=== PATIENT | female | born 1960 | race Caucasian/White ===

== ENCOUNTER 2019-01-06 06:58 | Day surgery (SDC) | payer OTHER ==
[2019-01-05 08:36] LABS: BASOPHILS # (AUTO) 0.1 K/uL (0.00-0.22); BASOPHILS % (AUTO) 1.1 % (0.0-2.0); EOSINOPHILS # (AUTO) 0.4 K/uL (0-0.4); EOSINOPHILS % (AUTO) 7.4 % (0.0-4.0); HEMOGLOBIN 12.1 g/dL (12.0-16.0); LYMPHOCYTES # (AUTO) 1.2 K/uL (2.5-16.5); LYMPHOCYTES % (AUTO) 24.9 % (20.5-51.1); MEAN CORPUSCULAR HEMOGLOBIN 30 pg (27-31); MEAN CORPUSCULAR HGB CONC 34 g/dL (33-37); MEAN CORPUSCULAR VOLUME 90.6 fL (80-94); MONOCYTES # (AUTO) 0.4 K/uL (0.8-1.0); MONOCYTES % (AUTO) 8.9 % (1.7-9.3); NEUTROPHILS # (AUTO) 2.8 K/uL (1.8-7.7); NEUTROPHILS % (AUTO) 57.7 % (42.2-75.2); PLATELET COUNT (AUTO) 153 K/uL (140-450); RED BLOOD CELL COUNT(AUTO) 3.97 MIL/uL (4.20-5.40); WHITE BLOOD COUNT (AUTO) 4.9 K/uL (4.8-10.8)
[2019-01-05 09:26] LABS: ALBUMIN 3.3 g/dL (3.4-5.0); ANION GAP 10.6 (8-16); CREATININE 0.8 mg/dL (0.6-1.3); POTASSIUM 3.6 mmol/L (3.5-5.1); TOTAL BILIRUBIN 0.3 mg/dL (0.0-1.0)
[~2019-01-06] VITALS: Ht 167.6 cm; Wt 87.5 kg
[~2019-01-06 06:58] MED LIST: ALBU-136 IH; ALPR1TAB2 PO; AMLO5TAB PO; AMYL-13; CETI10TA71 PO; DIPH25TA53 PO; DOCU-244 PO; ERGO500018 PO; ESCI10TA61 PO; ESTR1TAB19 PO; FLOR250 PO; FOLI1TAB19 PO; FURO-572 PO; IBUP-974 PO; LANTUS SQVAC; LEVO0.0216 PO; LEVO500T6 PO; LISI10TA11 PO; METH750T9 PO; OXYC15TA2 PO; POTA8TER12 PO; PROM25TA85 PO; REGULAR INSULIN SUBQ; SENN-72 PO; ZOLP10TA1 PO; [UNRECOGNIZED DRUG - CODE] PO
[2019-01-06] MEDS ORDERED: LIDOCAINE 1% 500 MG/50 ML VIAL ONE (08:39)
[2019-01-06] MEDS ORDERED: BUPIVACAINE-MPF/EPI 0.25% 30 ML VIAL INJ ONE (08:39)
[2019-01-06] MEDS ORDERED: DEXTROSE 50% 50 ML SYR IVP SCH (09:10)
[2019-01-06] MEDS ORDERED: DEXTROSE 50% 50 ML SYR IVP ONE (09:24)
[2019-01-06] MEDS ORDERED: PROPOFOL 200 MG/20 ML VIAL IV ONE (09:34)
[2019-01-06] MEDS ORDERED: ceFAZolin 1,000 MG VIAL ONE (09:49)
[2019-01-06] MEDS ORDERED: fentaNYL 0.05 MG/ML VIAL ONE (09:55)
[2019-01-06] MEDS ORDERED: MIDAZOLAM 2 MG/2 ML VIAL ONE (09:55)
[2019-01-06] MEDS ORDERED: ONDANSETRON 4 MG/2 ML VIAL IVP PRN (10:25)
[2019-01-06] MEDS ORDERED: BLOOD GLUCOSE MONITORING 1 DEV DEV FS ONE (10:25)
== END 2019-01-06 12:45 | disposition home or self-care (01) ==
LOC: MDS 06:58 → MMU 06:58 → MDS 12:45
PROVIDERS: ATTEND Surgery
DX: T82.848A Pain due to vascular prosthetic devices, implants and grafts, initial encounter (principal); Y83.8 Other surgical procedures as the cause of abnormal reaction of the patient, or of later complication, without mention of misadventure at the time of the procedure; Y92.89 Other specified places as the place of occurrence of the external cause; Z88.5 Allergy status to narcotic agent; Z88.8 Allergy status to other drugs, medicaments and biological substances; E11.9 Type 2 diabetes mellitus without complications; I10 Essential (primary) hypertension; M06.9 Rheumatoid arthritis, unspecified; F41.9 Anxiety disorder, unspecified; F15.90 Other stimulant use, unspecified, uncomplicated; J45.909 Unspecified asthma, uncomplicated; M32.9 Systemic lupus erythematosus, unspecified; G51.0 Bell's palsy; E66.9 Obesity, unspecified; Z86.73 Personal history of transient ischemic attack (TIA), and cerebral infarction without residual deficits; Z90.710 Acquired absence of both cervix and uterus; Z98.890 Other specified postprocedural states; Z68.31 Body mass index [BMI] 31.0-31.9, adult; Z79.4 Long term (current) use of insulin; Z79.899 Other long term (current) drug therapy; Z79.1 Long term (current) use of non-steroidal anti-inflammatories (NSAID); Z79.2 Long term (current) use of antibiotics
CPT/HCPCS: 36415; 36556; 36590; 71045; 76937; 77001; 80053; 85025; 86886; 86900; 86901; 88300; 93005; C1751; J0690; J1644; J2001; J2250; J2704; J3010; J3490; J7030; J7060; Q0092; 77003